=== PATIENT | female | born 1960 | race Caucasian/White ===

== ENCOUNTER 2022-06-02 13:53 | Emergency (ER) | payer MEDICARE, MEDICAID ==
[~2022-06-02] VITALS: Ht 170.2 cm; Wt 50.0 kg
[2022-06-02 14:17] LABS: HEMOGLOBIN 10.2 g/dl (12.0-16.0); LYMPHOCYTES # (AUTO) 1.5 X10'3 (1.1-4.8); MONOCYTES # (AUTO) 0.6 X10'3 (0-0.9); RED BLOOD COUNT 3.51 X10'6 (4.20-5.60); WHITE BLOOD COUNT 7.8 X10'3 (4.5-11.0)
[2022-06-02 14:19] LABS: BASOPHILS % (AUTO) 0.4 % (0-1); EOSINOPHILS % (AUTO) 0.3 % (0-6); LYMPHOCYTES % (AUTO) 19.8 % (21-51); MEAN CORPUSCULAR HEMOGLOBIN 28.9 PG (27.0-31.0); MEAN CORPUSCULAR HGB CONC 32.8 g/dL (33.0-36.5); MEAN CORPUSCULAR VOLUME 88.3 FL (78-98); MEAN PLATELET VOLUME 6.3 FL (7.4-10.4); MONOCYTES % (AUTO) 7.9 % (2-12); NEUTROPHILS # (AUTO) 5.6 X10'3 (1.8-7.7); NEUTROPHILS % (AUTO) 71.6 % (42-75); PLATELET COUNT 624 X10'3 (140-440); RED CELL DISTRIBUTION WIDTH 14.2 % (11.5-14.5)
[2022-06-02 14:30] LABS: ALBUMIN 3.5 G/DL (3.4-5.0); ALBUMIN/GLOBULIN RATIO 0.9 (1.1-1.5); ALKALINE PHOSPHATASE 114 IU/L (46-116); ANION GAP 11 (8-16); ASPARTATE AMINO TRANSFERASE 17 U/L (10-37); BILIRUBIN,TOTAL 0.5 MG/DL (0.1-1.0); BLOOD UREA NITROGEN 7 MG/DL (7-18); BUN/CREATININE RATIO 10.4 (6.6-38.0); CALCIUM 9.3 MG/DL (8.5-10.1); CHLORIDE 102 MMOL/L (99-107); CREATININE 0.67 MG/DL (0.40-0.90); GLUCOSE 118 MG/DL (70-104); POTASSIUM 3.2 MMOL/L (3.5-5.1); SODIUM 139 MMOL/L (135-145); TOTAL CARBON DIOXIDE 26.1 MMOL/L (24-32); TOTAL PROTEIN 7.6 G/DL (6.4-8.2); eGFR 89 ML/MIN
[2022-06-02 14:37] LABS: MAGNESIUM 2.1 MG/DL (1.5-2.4)
[2022-06-02 14:40] LABS: ALANINE AMINOTRANSFERASE < 6 U/L (12-78)
[2022-06-02 14:52] VITALS: BP 142/90
== END 2022-06-02 20:25 | disposition left against medical advice (07) ==
LOC: ER 13:53
DX: R07.9 Chest pain, unspecified (principal); Z53.21 Procedure and treatment not carried out due to patient leaving prior to being seen by health care provider
CPT/HCPCS: 36415; 71045; 80053; 83735; 83880; 84484; 85025; 93005

== ENCOUNTER 2023-11-29 08:18 | Emergency (ER) | payer MEDICARE, MEDICAID ==
[~2023-11-29] VITALS: Ht 170.2 cm; Wt 50.0 kg
[2023-11-29 08:19] VITALS: TEMP 98
[2023-11-29 08:42] VITALS: BP 140/75; PULSE 69
[2023-11-29] MEDS: ketorolac tromethamine 15mg/ml inj. IV STA (09:29)
[2023-11-29] MEDS: diphenhydrAMINE 50 mg/ml inj IV STA (09:47)
[2023-11-29] MEDS: ketorolac trometh. 30mg/ml inj. IV STA (09:58)
[2023-11-29] MEDS: metoclopramide 5 mg/ml inj IV ONE (09:58)
[2023-11-29 10:44] VITALS: RESP 18
[2023-11-29] MEDS: ketorolac tromethamine 15mg/ml inj. IV ONE (10:44)
[2023-11-29 10:51] VITALS: O2SAT 99
== END 2023-11-29 10:53 | disposition home or self-care (01) ==
LOC: ER 08:19
DX: R51.9 Headache, unspecified (principal); G50.0 Trigeminal neuralgia
CPT/HCPCS: 96374; 99284; J1885

== ENCOUNTER 2024-06-22 18:11 | Emergency (ER) | payer MEDICARE, MEDICAID | END 2024-06-22 20:46 | disposition left against medical advice (07) | LOC: ER 18:11 | DX: R10.84 Generalized abdominal pain (principal); Z53.21 Procedure and treatment not carried out due to patient leaving prior to being seen by health care provider ==